=== PATIENT | female | born 1975 | race Caucasian/White ===

== ENCOUNTER 2016-07-28 18:32 | Observation (INO) | payer MEDICAID ==
[2016-07-28] MEDS ORDERED: Sodium Chloride 0.9% 1,000 ML IV STA (19:15)
--- NOTE | 2016-07-28 19:17 | ED PDOC ---
Arrival/HPI - General Chief Complaint: Weakness/Neurological Deficit Time Seen by Provider: 07/28/16 18:46 Historian: Patient - History of Present Illness Narrative History of Present Illness (Text): 07/28/16 19:13 41yo female with history of Multiple sclerosis present to ED with complaint of leg weakness and pain typical of her MS exacerbation. States she have chronic pain and weakness of her lower extremity, but is worse today. She notes difficulty with ambulation. She sees a Neurologist at [facility]. she denies trauma, headache, visual changes, abdominal pain, nausea, vomiting, chest pain, SOB, aphasia, dysathria, any other complaint. Past Medical History - Provider Review Nursing Documentation Reviewed: Yes - Infectious Disease Hx of Infectious Diseases: None - Tetanus Immunization Tetanus Immunization: Unknown - Past Medical History Past Medical History: No Previous - Cardiac Hx Cardiac Disorders: No - Pulmonary Hx Respiratory Disorders: No - Neurological Hx Neurological Disorder: Yes (MS) Hx Multiple Sclerosis: Yes - HEENT Hx HEENT Disorder: No - Endocrine/Metabolic Hx Endocrine Disorders: No - Hematological/Oncological Hx Blood Disorders: No - Integumentary Hx Dermatological Disorder: No - Musculoskeletal/Rheumatological Hx Herniated Disk: Yes Hx Unsteady Gait: Yes - Gastrointestinal Hx Gastrointestinal Disorders: No - Genitourinary/Gynecological Hx Urinary Tract Infection: Yes - Psychiatric Hx Depression: No Hx Emotional Abuse: No Hx Physical Abuse: No Hx Substance Use: No - Surgical History Hx Section: Yes (X2) - Suicidal Assessment Feels Threatened In Home Enviroment: No Family/Social History - Physician Review Nursing Documentation Reviewed: Yes Family/Social History: Unknown Family HX Smoking Status: Never Smoked Hx Alcohol Use: No Hx Substance Use: No Allergies/Home Meds Allergies/Adverse Reactions: Allergies No Known Allergies Allergy (Verified 07/28/16 18:37) Home Medications: Home Meds Medication Instructions Recorded Confirmed Gabapentin 300 mg PO TID 11/17/12 07/28/16 Baclofen [Lioresal] 10 mg PO HS 02/26/16 07/28/16 Dalfampridine [Ampyra] 10 mg PO Q12 02/26/16 07/28/16 Dimethyl Fumarate [Tecfidera] 240 mg PO BID 02/26/16 07/28/16 Review of Systems - Physician Review All systems were reviewed & negative as marked: Yes - Review of Systems Constitutional: Normal Eyes: Normal ENT: Normal Respiratory: Normal Cardiovascular: Normal Gastrointestinal: Normal Genitourinary Female: Normal Musculoskeletal: Arthralgias (B/L) Skin: Normal Neurological: Focal Weakness (B/L lower extremity) Endocrine: Normal Hemo/Lymphatic: Normal Psychiatric: Normal Physical Exam Vital Signs Reviewed: Yes Vital Signs Temp Pulse BP Pulse Ox 07/28/16 18:35 98.3 F 97 H 111/72 16 L Temperature: Afebrile Blood Pressure: Normal Pulse: Regular Respiratory Rate: Normal Appearance: Positive for: Well-Appearing, Non-Toxic, Comfortable Pain Distress: None Mental Status: Positive for: Alert and Oriented X 3 - Systems Exam Head: Present: Atraumatic, Normocephalic Pupils: Present: PERRL Extroacular Muscles: Present: EOMI Conjunctiva: Present: Normal Mouth: Present: Moist Mucous Membranes Neck: Present: Normal Range of Motion Respiratory/Chest: Present: Clear to Auscultation, Good Air Exchange. No: Respiratory Distress, Accessory Muscle Use Cardiovascular: Present: Regular Rate and Rhythm, Normal S1, S2. No: Murmurs Abdomen: Present: Normal Bowel Sounds. No: Tenderness, Distention, Peritoneal Signs Back: Present: Normal Inspection Upper Extremity: Present: Normal Inspection. No: Cyanosis, Edema Lower Extremity: Present: Normal Inspection, NORMAL PULSES, Neurovascularly Intact, Other (Amublates with a cane). No: Edema, CALF TENDERNESS, Tenderness, Swelling, Erythema, Temperature Abnormalties Neurological: Present: GCS=15, CN II-XII Intact, Speech Normal, Motor Func Grossly Intact, Normal Sensory Function, Other (DEcreased LE strenght 2/5 on left an 3/5 on right.) Skin: Present: Warm, Dry, Normal Color. No: Rashes Psychiatric: Present: Alert, Oriented x 3, Normal Insight, Normal Concentration Medical Decision Making ED Course and Treatment: 07/28/16 20:41 PT with stated history. On reevaluation she continued to complaint of weakness to her LE. Lab was wnl. ESR was pending. PT was treated with solu medrol and Toradol in ED. She will be admitted for MS exaceration. Case was DW Dr. Briggs, who is cocering Dr. Villanueva. - Lab Interpretations Lab Results: 07/28/16 19:20 07/28/16 19:20 Lab Results 07/28/16 19:20: Sodium 141, Potassium 4.2, Chloride 103, Carbon Dioxide 27, Anion Gap 15, BUN 15, Creatinine 0.7, Est GFR ( Amer) > 60, Est GFR (Non- Af Amer) > 60, Random Glucose 116 H, Calcium 9.8, Total Bilirubin 0.9, AST 18, ALT 23, Alkaline Phosphatase 39, Total Protein 8.1, Albumin 4.7, Globulin 3.3, Albumin/Globulin Ratio 1.4 07/28/16 19:20: WBC 5.0 D, RBC 4.48, Hgb 12.8, Hct 38.1, MCV 85.0, MCH 28.6, MCHC 33.6, RDW 13.6, Plt Count 280, MPV 10.1, Gran % 88.3 H, Lymph % (Auto) 9.3 L, Weld % (Auto) 2.4, Eos % (Auto) 0.0 L, Baso % (Auto) 0.0, Gran # 4.38, Lymph # 0.5 L, Weld # 0.1, Eos # 0.0, Baso # 0.00, ESR 6 - Medication Orders Current Medication Orders: Discontinued Medications Sodium Chloride (Sodium Chloride 0.9%) 1,000 mls @ 999 mls/hr IV .Q1H1M STA Stop: 07/28/16 20:15 Last Admin: 07/28/16 19:39 Dose: 999 mls/hr Ketorolac Tromethamine (Toradol) 30 mg IVP STAT STA Stop: 07/28/16 18:58 Last Admin: 07/28/16 19:38 Dose: 30 mg Methylprednisolone (Solu-Medrol) 125 mg IVP STAT STA Stop: 07/28/16 18:58 Last Admin: 07/28/16 19:38 Dose: 125 mg Disposition/Present on Arrival - Present on Arrival Any Indicators Present on Arrival: No History of DVT/PE: No History of Uncontrolled Diabetes: No Urinary Catheter: No History of Decub. Ulcer: No History Surgical Site Infection Following: None - Disposition Have Diagnosis and Disposition been Completed?: Yes Diagnosis: Exacerbation of multiple sclerosis Disposition: HOSPITALIZED Disposition Time: 20:45 Patient Problems: Current Active Problems Problem Status Onset Exacerbation of multiple sclerosis Acute Condition: FAIR Referrals: Devin Coronel MD [Primary Care Provider] - Follow up with primary
[2016-07-28 19:32] LABS: ADD MANUAL DIFF? NO
[2016-07-28 19:39] LABS: GRAN # 4.38 (1.4-6.5); GRAN % 88.3 % (50.0-68.0); HEMATOCRIT 38.1 % (36.0-48.0); LYMPH # 0.5 (1.2-3.4); LYMPH % 9.3 % (22.0-35.0); MEAN CORPUSCULAR HEMOGLOBIN 28.6 pg (25.0-35.0); MEAN CORPUSCULAR HGB CONC 33.6 g/dl (31.0-37.0); MEAN PLATELET VOLUME 10.1 fl (7.0-11.0); MONO # 0.1 (0.1-0.6); MONO % 2.4 % (1.0-6.0); PLATELET COUNT 280 10^3/uL (120.0-450.0); RED CELL DISTRIBUTION WIDTH 13.6 % (11.5-14.5)
[2016-07-28 19:50] LABS: ALB/GLOB RATIO 1.4 (1.1-1.8); ALKALINE PHOSPHATASE 39 U/L (38-133); ALT/SGPT 23 U/L (7-56); AST/SGOT 18 U/L (15-39); BILIRUBIN,TOTAL 0.9 mg/dL (0.2-1.3); BLOOD UREA NITROGEN 15 mg/dL (7-21); CALCIUM 9.8 mg/dL (8.4-10.5); CARBON DIOXIDE 27 mmol/L (21-33); CHLORIDE 103 mmol/L (98-107); GFR AFRICAN-AMERICAN > 60; GLUCOSE,RANDOM 116 mg/dL (70-110); POTASSIUM 4.2 mmol/L (3.6-5.0); SODIUM 141 mmol/L (132-148); TOTAL PROTEIN 8.1 g/dL (5.8-8.3)
[2016-07-28 20:51] LABS: ERYTHROCYTE SEDIMENTATION RATE 6 mm/hr (0.0-20.0)
[2016-07-28 21:31] LABS: URINE BILIRUBIN NEGATIVE (NEGATIVE); URINE BLOOD NEGATIVE (NEGATIVE); URINE GLUCOSE (UA) NEGATIVE (NEGATIVE); URINE KETONE NEGATIVE (NEGATIVE); URINE LEUKOCYTE ESTERASE NEGATIVE Leu/uL (NEGATIVE); URINE PROTEIN NEGATIVE mg/dL (<30 mg/dL); URINE UROBILINOGEN 0.2 E.U./dL (<1 E.U./dL)
[2016-07-28 21:35] LABS: URINE APPEARANCE CLEAR (CLEAR); URINE COLOR YELLOW (YELLOW)
[2016-07-29] MEDS ORDERED: TECFIDERA PO SCH (00:15)
[2016-07-29 01:33] VITALS: RESP 20
[2016-07-29] MEDS: TECFIDERA PO SCH ×3 (11:29→23:14)
[2016-07-29] MEDS: AMPYRA PO SCH ×3 (11:29→23:15)
[2016-07-29] MEDS ORDERED: MethylPREDNISolone 40 mg Vial IVP STA (12:43)
[2016-07-29] MEDS ORDERED: Sodium Chloride 0.9% 1,000 ML IV SCH (18:45)
[2016-07-29] MEDS ORDERED: Home Med 1 UNIT PO SCH (23:00)
[2016-07-30] MEDS: Pantoprazole 40 mg EC Tab PO SCH (06:00)
[2016-07-30] MEDS: TECFIDERA PO SCH ×2 (11:10→22:44)
[2016-07-30] MEDS: AMPYRA PO SCH ×2 (11:10→22:44)
[2016-07-30] MEDS: Enoxaparin 40 mg Syringe SC SCH (11:10)
[2016-07-30] MEDS: cefTRIAXone 1 gm 1 GM/100 ML BAG IVPB SCH (11:10)
--- NOTE | 2016-07-30 12:18 | CON ---
DATE: 07/30/2016 CHIEF COMPLAINT: Questionable left leg weakness and tingling, evaluation for MS exacerbation. HISTORY OF PRESENT ILLNESS: This is a 41-year-old woman who I have known previously from admission. Has history of multiple sclerosis diagnosed in 2012, on Tecfidera and Ampyra, who presented with lef t leg weakness and swelling mostly; therefore, found her left leg heavy, but minimal paresthesias. S he is status post methylprednisone and is feeling much better, though she still feels swelling of her lower leg. She sees a neurologist named Dr. Grubbs at the [facility] in [facility]. She has a his tory of lesions in her C-spine in C4-C5 and also her thoracic spine which had improved from her previ ous diagnosis initially. Has history of all the MS lesions with no active enhancing lesions from . She has been recently stressed out due to her son has been in [facility] with acut e ____. Has been running around. Currently, she is doing much better, able to walk. PAST MEDICAL HISTORY: History of multiple sclerosis diagnosed in 2012, on Tecfidera and Ampyra. She sees Dr. Grubbs at [facility] at the [facility] Center in [place]. PAST SURGICAL HISTORY: . HOME MEDICATIONS: Gabapentin, baclofen, Ampyra, Tecfidera. SOCIAL HISTORY: No illicit drug use, smoking or ETOH abuse. REVIEW OF SYSTEMS: 14-point review of systems is negative except for the HPI. FAMILY HISTORY: Noncontributory. PHYSICAL EXAMINATION: VITAL SIGNS: Temperature 98, pulse rate 63, blood pressure 103/44, respiratory rate 20, oxygen satur ation 97% via room air. GENERAL: The patient is sitting up in bed in no acute distress. HEENT: Atraumatic, normocephalic. PERRLA. Extraocular muscles intact. NECK: Supple, no JVD, no adenopathy noted. LUNGS: Clear to auscultation. No adventitious sounds. HEART: S1, S2. Normal rate and rhythm. No murmurs, rubs, or gallops. ABDOMEN: Soft, nontender, nondistended. Bowel sounds are present. EXTREMITIES: No clubbing, no cyanosis. Peripheral pulses 2+ felt bilaterally. NEUROLOGIC: The patient is alert, oriented to person, place, month and year. Speech is fluent, with out any errors. Cranial nerves II through XII are intact. MOTOR: Moves all extremities equally. She is able to stand without any difficulty. Strength is 5/5 in upper extremities, but lower extremities are 5-/5 bilaterally which is her baseline. SENSORY: Has decreased subjective sensation in the left lower extremity, otherwise proprioception, v ibrations intact bilaterally. DTRs are brisk at the knees and ankles and 2+ in the upper extremities . COORDINATION: Midpji-yq-xrpl intact. GAIT: Slightly wide-based. Romberg is negative. LABORATORY DATA: Sodium is 141, potassium 4.2, chloride 103, carbon dioxide 27, BUN 15, creatinine 0 .7. ASSESSMENT AND PLAN: This is a 41-year-old woman with past medical history of multiple sclerosis jesse gnosed in 2012, on Tecfidera and Ampyra, who presented with worsening left leg weakness and swelling, has recently undergone a lot of stress and had been running around, and is coming for possible exace rbation. She is status post steroids, on methylprednisone, is doing well. At this time this is ? mu ltiple sclerosis exacerbation, but I feel that she is doing much better now. She can continue to fol low with her neurologist, Dr. Grubbs. Refer to the imaging studies since she recently had them in past 6 months, and consider to repeat her imaging studies with her MS doctor, Dr. Grubbs in the [facility] or at [facility]. Will get an ultrasound of her left lower extremity to assess for any DVT given the swelling, and continue with gabapentin 300 mg p.o. t.i.d. for neuropathi c pain as well as baclofen for underlying muscle spasms and to continue with the Tecfidera dose for h er MS. At this time, she is stable from my clinical standpoint. Will sign off. She can follow up w ith her neurologist. Kavon Trujillo MD cc: [phone] TT: 07/30/2016 12:17:33 Confirmation # [id number] Dictation # [id number] fauzia
--- NOTE | 2016-07-30 22:58 | PN ---
DATE: 07/30/2016 REFERRING PHYSICIAN: Dr. Villanueva. SUBJECTIVE: She is out of bed to chair, feels better today. Received steroids last night, and recei werner IV fluids. Leg pain is better. No cough, no sputum production. No chest pain. No nausea. OBJECTIVE: GENERAL: In no acute distress. VITAL SIGNS: Temp is 98, heart rate is 63, respiratory rate is 20, blood pressure 103/44, pulse ox 9 4% on room air. HEENT: Moist mucous membranes. Crowded airway. Mallampati score is 4. NECK: Supple. JVD. LUNGS: Have a fair airflow with few rhonchi. HEART: S1 and S2. ABDOMEN: Soft, nontender. No organomegaly. EXTREMITIES: There is trace edema. NEUROLOGIC: Awake, alert, follows simple command. MEDICATIONS: She is on Ampyra 10 mg q. 12 hours. Also, receiving Tecfidera 240 mg twice a day, bacl ofen 10 mg at bedtime, Lovenox 40 mg daily, Neurontin 300 mg 3 times a day, Protonix 40 mg daily, Hua ephin 1 g daily, Solu-Medrol 100 mg daily. IMPRESSION AND PLAN: Exacerbation of multiple sclerosis, rule out urinary tract infection, rule out deep vein thrombosis, dehydration, on IV fluids, Solu-Medrol 100 mg daily, total 3 days. Gastric pro phylaxis. Deep vein thrombosis prophylaxis. Continue pain management. 100 mg Solu-Medrol dora rrow. She should get attended sleep study to rule out sleep apnea syndrome and hypoxemia at nighttim e. Should follow up with her primary neurologist at [facility] for further workup. Thank you. Will follow with you. Joao Briggs MD cc: [phone] TT: 07/30/2016 22:57:06 Confirmation # [id number] Dictation # [id number] [place]
--- NOTE | 2016-07-31 00:36 | CP.PCM.PN ---
Subjective - Date & Time of Evaluation Date of Evaluation: 07/31/16 Time of Evaluation: 00:36 - Subjective Subjective: Patient was seen at bedside. She complained of back pain for past 45 minutes, mild pain , not radiating. Pain is in upper back. Denies any injury. Denies chest pain, sob, nausea. States that it may have been from laying in bed. This 41 year old woman was admitted left leg weakness and swelling, leukopenia , multiple sclerosis exacerbation. Has PMH of multiple sclerosis,overweight, c spine , thoracic spine disease, history of . Objective - Vital Signs/Intake and Output Vital Signs (last 24 hours): Temp Pulse Resp BP Pulse Ox 98.1 F 63 20 95/54 L 94 L 07/30/16 08:00 07/30/16 08:00 07/30/16 08:00 07/30/16 18:23 07/30/16 08:00 Intake and Output: 07/30/16 07/31/16 18:59 06:59 Intake Total 480 780 Balance 480 780 - Medications Medications: Current Medications Baclofen (Lioresal) 10 mg PO HS [facility] Last Admin: 07/30/16 22:44 Dose: 10 mg Enoxaparin Sodium (Lovenox) 40 mg SC DAILY [facility] PRN Reason: Protocol Last Admin: 07/30/16 11:10 Dose: 40 mg Gabapentin (Neurontin) 300 mg PO TID [facility] PRN Reason: Protocol Last Admin: 07/30/16 18:16 Dose: 300 mg Home Med (Home Med) 1 unit PO Q12H [facility] Last Admin: 07/30/16 22:44 Dose: Not Given Home Med (Home Med) 1 unit PO 1100,2300 [facility] Last Admin: 07/30/16 22:44 Dose: 1 unit Ceftriaxone Sodium (Rocephin 1 Gram Ivpb) 1 gm in 100 mls @ 100 mls/hr IVPB DAILY [facility] PRN Reason: Protocol Last Admin: 07/30/16 11:10 Dose: 100 mls/hr Methylprednisolone (Solu-Medrol) 100 mg IVP DAILY [facility] Stop: 08/01/16 19:22 Last Admin: 07/30/16 11:11 Dose: 100 mg Pantoprazole Sodium (Protonix Ec Tab) 40 mg PO 0630 [facility] Last Admin: 07/30/16 06:00 Dose: Not Given - Constitutional Appears: Well, No Acute Distress - Head Exam Head Exam: ATRAUMATIC, NORMAL INSPECTION, NORMOCEPHALIC - Eye Exam Eye Exam: Normal appearance - ENT Exam ENT Exam: Normal External Ear Exam - Neck Exam Neck Exam: Normal Inspection - Respiratory Exam Respiratory Exam: NORMAL BREATHING PATTERN - Cardiovascular Exam Cardiovascular Exam: absent: JVD - GI/Abdominal Exam GI & Abdominal Exam: absent: Distended - Rectal Exam Rectal Exam: Deferred - Extremities Exam Extremities Exam: Normal Inspection - Back Exam Back Exam: NORMAL INSPECTION - Neurological Exam Neurological Exam: Alert, Oriented x3 - Psychiatric Exam Psychiatric exam: Normal Affect, Normal Mood - Skin Skin Exam: Normal Color Assessment and Plan - Assessment and Plan (Free Text) Assessment: Upper back pain. Multiple sclerosis exacerbation. Overweight. History C-Seciton. Plan: Tylenol 975 mg PO x 1. Continue present management.
[2016-07-31] MEDS: Pantoprazole 40 mg EC Tab PO SCH (06:32)
--- NOTE | 2016-07-31 08:55 | PN ---
DATE: 07/30/2016 The patient was admitted with acute multiple sclerosis exacerbation. She is on medications, seen by neurology as outpatient. She has been diagnosed in 2012. She is on Tecfidera. According to her, it is a medication, Tecfidera on multiple sclerosis; however, she came in with worsening of her symptom s and she was seen by neurology. Currently on IV steroids. There is no new complaint, no chest pain , no short of breath, just complained of leg pain, otherwise stable. PHYSICAL EXAMINATION: VITAL SIGNS: Temperature 98, heart rate 63, blood pressure 103/44, respirations 20, saturation 94% o n room air. HEAD AND NECK: Normal. No JVD, no thyromegaly. CHEST: Clear, good entry. CARDIAC: First sound, second sound normal. ABDOMEN: Soft, nontender. EXTREMITIES: Mild edema. NEUROLOGIC: Normal. IMPRESSION AND PLAN: 1. Acute multiple sclerosis exacerbation. Continues steroids. We will follow up with the neurologi . The patient may go home in the morning. 2. Leg pain, bilateral, muscular in origin. Doubt any deep venous thrombosis. We will get venous D oppler of both lower extremities and continue Lovenox for deep venous thrombosis prophylaxis. Contin ue Protonix for gastrointestinal prophylaxis. We will continue current treatment and will follow up. Her home medication is called Tecfidera 240 mg b.i.d. I mentioned in my history of the complaint. Continue current therapy. Yeison Villanueva MD cc: [phone] TT: 07/31/2016 08:34:14 Confirmation # [id number] Dictation # [id number] tn
[2016-07-31] MEDS: Enoxaparin 40 mg Syringe SC SCH (09:58)
[2016-07-31] MEDS: cefTRIAXone 1 gm 1 GM/100 ML BAG IVPB SCH (09:59)
[2016-07-31] MEDS: AMPYRA PO SCH (10:12)
[2016-07-31] MEDS: TECFIDERA PO SCH (10:12)
--- NOTE | 2016-07-31 16:09 | US ---
HISTORY: Leg pain and swelling. Evaluate for DVT PHYSICIAN(S): Vinnie Cook MD. TECHNIQUE: Duplex sonography and color-flow Doppler with graded compression were used to evaluate the deep venous systems of both lower extremities. FINDINGS: The visualized deep venous systems of both lower extremities are sonographically normal and compressible. Normal wave forms and augmentation are seen. There is no sonographic evidence for deep venous thrombosis in the visualized segments of both lower extremities. IMPRESSION: No sonographic evidence for deep venous thrombosis in the visualized segments of both lower extremities.
[2016-07-31 16:47] VITALS: BP 103/64; PULSE 72; TEMP 98.5; O2SAT 97
--- NOTE | 2016-08-01 19:54 | DS ---
The patient was seen by Dr. Briggs initially for acute worsening of her multiple sclerosis, seen by Susan Trujillo, and was given IV steroids. She did well. She complained of lower extremity pain. She had a venous Doppler, which was negative. The patient is otherwise stable and will be discharge d home today, which she is 07/31/2016. PHYSICAL EXAMINATION: VITAL SIGNS: Normal. Temperature 98, heart rate 72, blood pressure is 103/64, respirations 20, and saturating 97% on room air. HEAD AND NECK: Normal. No JVD, no thyromegaly. CHEST: Clear, good entry. CARDIAC: First sound and second sound normal. ABDOMEN: Soft, nontender. EXTREMITIES: There is minimal ankle edema. NEUROLOGIC: The patient is alert, awake, oriented x 3. Speech is normal without any . Cranial nerves were normal. Motor: She moves all extremities well. Also, she does have a gait, according to her gait problem, with walking, but there was 5/5 power. There is decreased sensation in left low er extremity, which was from before. GAIT: Abnormal gait, wide-based gait. DISCHARGE DIAGNOSES: 1. Acute multiple sclerosis exacerbations. The patient was given a Medrol pack. Follow up with Dr. Kavon Trujillo. The patient should continue Tecfidera, which has been given with the [place] team . 2. Pain and numbness in the left lower extremity. Continue gabapentin and the patient also getting for multiple sclerosis, is getting baclofen. 3. Continue Protonix, mag oxide for leg cramps and any indigestion. Continue current treatment. Will see the patient in a week. Yeison Villanueva MD cc: [phone] TT: 08/01/2016 19:53:38 [place]
== END 2016-07-31 17:23 | disposition home or self-care (01) ==
LOC: ED 18:32 → ERH 21:01 → 5RSO 21:54
PROVIDERS: ADMIT Internal Medicine; ATTEND Internal Medicine
DX: G35 Multiple sclerosis (principal); E86.0 Dehydration; M54.9 Dorsalgia, unspecified; M79.1 Myalgia; E66.3 Overweight; Z68.29 Body mass index [BMI] 29.0-29.9, adult
CPT/HCPCS: 80053; 81003; 85025; 85651; 87086; 93970; 96365; 96366; 96372; 96375; 96376; 97116; 97161; 99285; G0378; G8978; G8979; G8980; J0696; J1650; J1885; J2920; J2930; J7040